=== PATIENT | female | born 1945 | race Caucasian/White ===

== ENCOUNTER → 2018-01-13 | Outpatient (CLI) | payer MEDICARE, OTHER ==
[~2018-01-13] MED LIST: LIPITOR 10 MG10 M1 PO; LOPRESSOR 12.12.5 MG PO; OMEPRAZOLE 20 M20 M1 PO; VITAMIN D 5050000 I1 PO
== END ==
LOC: M.RAD 14:26
DX: Z13.820 Encounter for screening for osteoporosis (principal); Z78.0 Asymptomatic menopausal state; Z88.0 Allergy status to penicillin; Z88.8 Allergy status to other drugs, medicaments and biological substances

== ENCOUNTER → 2019-03-21 | Outpatient (CLI) | payer MEDICARE, OTHER ==
[2019-03-21 11:27] LABS: ALBUMIN 3.3 g/dL (3.4-5.0); CALCIUM 8.7 mg/dL (8.5-10.1); CREATININE 1.6 mg/dL (0.6-1.3); POTASSIUM 4.7 mmol/L (3.5-5.1); TOTAL BILIRUBIN 0.8 mg/dL (<0.1-1.0); TOTAL PROTEIN 6.9 g/dL (6.4-8.2)
[2019-03-21 23:06] LABS: COMPLEMENT-C4 25 mg/dL (14-44); GLYCOHEMOGLOBIN (HGB A1C) 5.6 % (4.8-5.6)
[2019-03-22 02:10] LABS: URINE CREATININE 105.8 mg/dL (Not Estab.); URINE CREATININE (GM/24H) 1270 mg/24 hr (800-1800)
[2019-03-22 10:07] LABS: HEPATITIS B SURFACE AG Negative (Negative)
[2019-03-23 14:12] LABS: CREATININE CLEARANCE 54 mL/min (88-128); URINE PROTEIN 853 mg/24 hr (30-150); URINE PROTEIN (MG/DL) 71.1 mg/dL (Not Estab.)
[2019-03-24 05:10] LABS: ANTI-DNA SCREEN 7 IU/mL (0-9); ANTI-RNP 0.3 AI (0.0-0.9)
[2019-03-24 10:09] LABS: GLOMERULR BASEM MEMBRN AB 3 units (0-20)
[2019-03-24 13:08] LABS: GLOBULIN TOTAL 3.1 g/dL (2.2-3.9); M-SPIKE Not Observed g/dL (Not Observed)
== END ==
LOC: M.LAB 10:15
PROVIDERS: Internal Medicine Nephrology
DX: N18.4 Chronic kidney disease, stage 4 (severe) (principal); Z79.899 Other long term (current) drug therapy